=== PATIENT | female | born 1980 | race Caucasian/White ===

== ENCOUNTER 2018-06-30 07:46 | Emergency (ER) | payer BC ==
[~2018-06-30] VITALS: Ht 162.6 cm; Wt 63.5 kg
[~2018-06-30 07:46] MED LIST: ACETAMINOPHEN500 MG; ALLEGRA ALLERGY60 MG PO; CLONIDINE HCL0.1 MG; HYDROXYZINE HCL25 MG; HYOMAX-SL0.125 MG; IBUPROFEN400 MG; LOPERAMIDE2 MG; MULTIVITAMINS1 EAC7; TRAZODONE HCL100 MG
[2018-06-30] MEDS ORDERED: ONDANSETRON ODT8 MG SL (09:00)
[2018-06-30] MEDS ORDERED: IBUPROFEN600 MG PO (09:00)
[2018-06-30] MEDS ORDERED: BENADRYL25 MG PO (09:00)
== END 2018-06-30 09:05 | disposition home or self-care (01) ==
LOC: ED 07:46
DX: G43.909 Migraine, unspecified, not intractable, without status migrainosus (principal); F17.200 Nicotine dependence, unspecified, uncomplicated
CPT/HCPCS: 96372; 99283-25; J1885; Q0163

== ENCOUNTER 2019-03-01 13:02 | Emergency (ER) | payer OTHER, BC ==
[~2019-03-01] VITALS: Ht 162.6 cm; Wt 63.5 kg
--- OUTSIDE RECORDS SUMMARY | ~2019-03-01 | XMS | Clinical Summary ---
Demographics + + + | Address | [address] | | | [place] [address] | + + + | Home Phone | | + + + | Preferred Language | Unknown | + + + | Marital Status | Single | + + + | Spiritism Affiliation | Unknown | + + + | Race | Unknown | + + + | Ethnic Group | Unknown | + + + Author + + + | Author | [facility] | | | and [place] | + + + | Organization | [facility] | | | and [place] | + + + | Address | Unknown | + + + | Phone | Unavailable | + + + Support + + +---------+ + | Name | Relationship | Address | Phone | + + +---------+ + | MERLIN RODRIGUEZ | ECON | Unknown | | + + +---------+ + Care Team Providers + +------+ + | Care Section Gang Worker Name | Role | Phone | + +------+ + | [facility] CAREER CENTER DIRECTOR | PCP | Unavailable | + +------+ + Allergies No Known Allergies Medications + + + +---------+------+------+-------+ | Medication | Sig | Dispensed | Refills | Star | End | Statu | | | | | | t | Date | s | | | | | | Date | | | + + + +---------+------+------+-------+ | traZODone | Take 50 mg by mouth | | 0 | | | Activ | | (DESYREL) 50 mg | nightly. | | | | | e | | tablet | | | | | | | + + + +---------+------+------+-------+ | cetirizine | Take 10 mg by mouth | | 0 | | | Activ | | (ZYRTEC) 10 mg | Daily. | | | | | e | | tablet | | | | | | | + + + +---------+------+------+-------+ | fluticasone | Inhale 2 puffs into | | 0 | | | Activ | | (FLOVENT DISKUS) 50 | the lungs Daily. | | | | | e | | MCG/BLIST diskus | | | | | | | | inhaler | | | | | | | + + + +---------+------+------+-------+ Active Problems No known active problems Family History + + +------+ + | Medical History | Relation | Name | Comments | + + +------+ + | Prostate cancer | Maternal | | | | | Grandfath | | | | | er | | | + + +------+ + | Heart disease | | | | + + +------+ + + +------+ + + | Relation | Name | Status | Comments | + +------+ + + | Father | | Alive | unknown | + +------+ + + | Maternal Grandfather | | | prostate cancer | | | | (Age | | | | | 70) | | + +------+ + + | Mother | | Alive | | + +------+ + + Social History + + + +--------+ + | Tobacco Use | Types | Packs/Day | Years | Date | | | | | Used | | + + + +--------+ + | Former Smoker | Cigarettes | 0.5 | | Quit: 06/09/2016 | + + + +--------+ + + +---+---+---+ | Smokeless Tobacco: | | | | | Never Used | | | | + +---+---+---+ + + | Tobacco Cessation: Counseling Given: Yes | + + + + +---------+ + | Alcohol Use | Drinks/We | oz/Week | Comments | | | ek | | | + + +---------+ + | No | 0 | 0.0 | | | | Standard | | | | | drinks or | | | | | | | | | | equivalen | | | | | t | | | + + +---------+ + + + + | Sex Assigned at | Date Recorded | | | | + + + | Not on file | | + + + + + + + | Job Start Date | Occupation | Industry | + + + + | Not on file | Not on file | Not on file | + + + + + + + + | Travel History | Travel Start | Travel End | + + + + + + | No recent travel history available. | + + Last Filed Vital Signs + + + + | Vital Sign | Reading | Time Taken | + + + + | Blood Pressure | 104/52 | 06/30/2016 1050 PST | + + + + | Pulse | 56 | 06/30/20160 PST | + + + + | Temperature | 36.8 C (98.3 F) | 06/30/2016 1050 PST | + + + + | Respiratory Rate | 16 | 06/30/2016 1050 PST | + + + + | Oxygen Saturation | 99% | 06/30/20161049 PST | + + + + | Inhaled Oxygen | - | - | | Concentration | | | + + + + | Weight | 80.3 kg (177 lb) | 06/30/20161049 PST | + + + + | Height | 165.1 cm (5' 5") | 07/11/20141405 PST | + + + + | Body Mass Index | 29.45 | 07/11/20141405 PST | + + + + Plan of Treatment + + + + + | Health Maintenance | Due Date | Last Done | Comments | + + + + + | Vaccine: | | | | | Dtap/Tdap/Td (1 - | 1 | | | | Tdap) | | | | + + + + + | Cervical Cancer | | | | | Screening (Pap) | 2 | | | + + + + + | Vaccine: Influenza | | | | | (#1) | 9 | | | + + + + + Results Not on filefrom Last 3 Months Insurance + +--------+ +--------+ +---------+--------+ | Payer | Benefi | Subscriber | Effect | Phone | Address | Type | | | t Plan | ID | chrissy | | | | | | / | | Dates | | | | | | Group | | | | | | + +--------+ +--------+ +---------+--------+ | [employer] | [employer] | [id number] | | [phone] | | Medica | | MEDICAID HMO | HEALTH | | 015-Pr | 1 | | id | | | MDCD | | esent | | | | | | HMO [place] | | | | | | + +--------+ +--------+ +---------+--------+ + +--------+ +--------+ + + | Guarantor Name | Accoun | Relation to | Date | Phone | Billing Address | | | t Type | Patient | of | | | | | | | | | | + +--------+ +--------+ + + | Rebekah Rios | Person | Self [birth year] | [address] | | | al/Yunior | | 1981 | [phone] | [place] [address] | | | wojciech | | | 0 (Home) | | + +--------+ +--------+ + + Advance Directives Patient has advance care planning documents on file. For more information, please contact:[facility] [place] [address]
--- OUTSIDE RECORDS SUMMARY | ~2019-03-01 | XMS | Clinical Summary ---
Demographics + + + | Address | [address] | | | [place] [address] | + + + | Home Phone | | + + + | Preferred Language | Unknown | + + + | Marital Status | Single | + + + | Buddhism Affiliation | Unknown | + + + | Race | Unknown | + + + | Ethnic Group | Unknown | + + + Author + + + | Author | [facility] | | | and [place] | + + + | Organization | [facility] | | | and [place] | [...] Team Providers + +------+ + | Care Quantitative Developer Name | Role | Phone | + +------+ + | [facility] WELFARE MANAGER | PCP | Unavailable | + +------+ [...] | [employer] | MOD[employer] | [id number] | | [phone] | | Medica | [...] | | al/Yunior | | 1981 | [phone] | [place] [address] | | | wojciech | | | 0 (Home) | | + +--------+ +--------+ + + Advance Directives Patient has advance care planning documents on file. For more information, please contact:[facility] [place] [address]
[~2019-03-01 13:02] MED LIST changes: +BENADRYL25 MG PO; +IBUPROFEN600 MG PO; +ONDANSETRON ODT8 MG SL
[2019-03-01] MEDS ORDERED: KEFLEX500 MG PO (15:29)
== END 2019-03-01 15:54 | disposition home or self-care (01) ==
LOC: ED 13:02
DX: S61.233A Puncture wound without foreign body of left middle finger without damage to nail, initial encounter (principal); W22.8XXA Striking against or struck by other objects, initial encounter; Y99.0 Civilian activity done for income or pay; F17.200 Nicotine dependence, unspecified, uncomplicated
CPT/HCPCS: 73140; 99283

== ENCOUNTER 2020-12-14 10:04 | Emergency (ER) | payer BC ==
[~2020-12-14] VITALS: Ht 162.6 cm; Wt 65.3 kg
[~2020-12-14 10:04] MED LIST changes: +KEFLEX500 MG PO
[2020-12-14] MEDS ORDERED: HYDROCODON-ACE1 EA10 PO (11:21)
== END 2020-12-14 11:29 | disposition home or self-care (01) ==
LOC: ED 10:04
DX: S43.102A Unspecified dislocation of left acromioclavicular joint, initial encounter (principal); W17.89XA Other fall from one level to another, initial encounter; F17.200 Nicotine dependence, unspecified, uncomplicated
CPT/HCPCS: 73030; 99283-25

== ENCOUNTER 2025-03-19 19:15 | Emergency (ER) | payer OTHER ==
[~2025-03-19] VITALS: Ht 162.6 cm; Wt 100.0 kg
[~2025-03-19 19:15] MED LIST changes: +HYDROCODON-ACE1 EA10 PO
[2025-03-19] MEDS ORDERED: KETOROLAC TROMETHAMINE 30 MG/ML VIAL IV ONE (19:45)
[2025-03-19 20:06] LABS: BASOPHILS 0.4 % (0.1-1.2); EOSINOPHILS 1.5 % (0.7-5.8); LYMPHOCYTES 21.9 % (19.3-51.7); MCH 28.3 PG (25.6-32.2); MCHC 32.1 g/dL (32.2-35.5); MCV 88.2 fL (79.4-94.8); MONOCYTES 13.3 % (4.7-12.5); NEUTROPHILS 62.5 % (34.0-71.1); RBC 4.31 M/uL (3.93-5.22)
[2025-03-19 20:22] LABS: ALT (SGPT) 24.0 U/L (14-59); AST (SGOT) 14.0 U/L (15-37); GLOMERULAR FILTRATION RATE,EST 98.0 mL/min (>60); PROTEIN, TOTAL 7.4 g/dL (6.4-8.2); UREA NITROGEN 21.0 mg/dL (7-18)
[2025-03-19 21:07] LABS: ERYTHROCYTE SEDIMENTATION RATE 19
[2025-03-19] MEDS ORDERED: CEPHALEXIN500 M1 PO (21:22)
[2025-03-19] MEDS ORDERED: CEPHALEXIN MONOHYDRATE 500 MG HOME.PACK PO ONE (21:30)
[2025-03-19 21:42] VITALS: BP 127/77
== END 2025-03-19 21:44 | disposition home or self-care (01) ==
LOC: ED 19:15
PROVIDERS: Internal Medicine
DX: S92.251A Displaced fracture of navicular [scaphoid] of right foot, initial encounter for closed fracture (principal); S46.911A Strain of unspecified muscle, fascia and tendon at shoulder and upper arm level, right arm, initial encounter; L03.115 Cellulitis of right lower limb; F17.200 Nicotine dependence, unspecified, uncomplicated; W01.0XXA Fall on same level from slipping, tripping and stumbling without subsequent striking against object, initial encounter
CPT/HCPCS: 36415; 73030; 73610; 80053; 84550; 85025; 85651; 86140; 96374; 99283; A9270; J1885